=== PATIENT | female | born 1990 | race Caucasian/White ===

== ENCOUNTER 2021-04-22 07:26 | Inpatient (IN) ==
[2021-04-22] MEDS ORDERED: OXYTOCIN 30 UNITS/500 ML BAG IV PRN ×3 (08:43→19:06)
[2021-04-22 09:08] LABS: Hematocrit (blood only) 36.5 % (37-47); Hemoglobin 12.3 g/dL (12.0-16.0); Mean Corpuscular Hemoglobin 29.6 pg (25-34); Mean Corpuscular Hgb Conc 33.7 g/dL (32-36); Mean Corpuscular Volume 87.7 fL (80-100); Mean Platelet Volume 10.5 fL (7.4-10.4); Platelet Count 188 K/uL (130-400); RDW Coefficient of Variation 13.4 % (11.5-14.5); RDW Standard Deviation 42.2 fL (36.4-46.3); Red Blood Count 4.16 M/uL (4.2-5.4); White Blood Count 10.42 K/uL (4.8-10.8)
--- NOTE | 2021-04-22 09:16 | History & Physical Report ---
Date of Service April 22, 2021 Assessment & Plan (1) Encounter for supervision of normal in multigravida, antepartum: Plan: Admit to L&D. [facility]/[place]. Labs. Glucose Q 1h when in active labor. (2) COVID-19 affecting , antepartum: Plan: Discussed results with patient, will move to negative pressure room. Answered questions. Admission and Anticipated Discharge Date Admission Date: April 22, 2021 History of Present Illness Chief Complaint: IOL Primary Care Provider: Amy Kim DO 30yo @ 40 12/05, here for IOL. +FM, no VB, no LOF. No ctx. complicated by: [email or web address]. Allergies Allergy/AdvReac Type Severity Reaction Status Date / Time No Known Allergies Allergy Verified 04/19/21 10:07 Home Medications Medication Instructions Recorded Confirmed Type cetirizine 10 mg tablet (Zyrtec) 10 mg PO DAILY PRN 05/25/20 04/22/21 History vit 123-iron 28 mg-folic 2 cap PO DAILY cap 05/25/20 04/22/21 History acid 800 [id number]-9g 235 mg capsule (One-A-Day Women's 1 DHA-FA) acetone (urine) test (Ketone Urine #50 ea 11/19/20 04/19/21 Rx Test) blood sugar diagnostic (OneTouch #150 ea 11/19/20 04/19/21 Rx Verio test strips) blood-glucose meter (OneTouch #1 ea 11/19/20 04/19/21 Rx Verio Flex meter) lancets 33 gauge (OneTouch Delica #150 ea 11/19/20 04/19/21 Rx Plus Lancet) Patient History Medical History (Updated 04/22/21 @ 09:21 by Kourtney Tavarez DO) Allergies Gestational diabetes Diet- Controlled Surgical History S/P wisdom tooth extraction Family History Father Type 1 diabetes Kidney disease Obstructive sleep apnea Mother Hypertension Cardiac arrhythmia Social History Smoking Status: Never smoker Hx Alcohol Use: No Hx Substance Use: No Preferred Language: Kazakh Communication Ability: Effective 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 Beliefs That Will Affect Care: None marital status: marital status details: Venkat [phone] Current Living Situation: Spouse Current Living Situation Comment: Daughter current occupational status: employed current occupation: teacher Other Information That Helps Us Care for You: No Feels Safe at Home: Yes Safety Concerns: Feels Safe At This Time Dental Care, Regularly: Yes Physical Activity Frequency: Does not Exercise Seatbelt Use: always Sunscreen Use: Yes Assistive Devices: None Review of Systems All systems reviewed & are unremarkable except as noted in HPI & below Physical Exam Physical Exam: SVE 4/50/-3 FHT Cat 1 [place] none Constitutional: WD/WN, vitals as above Respiratory: normal respiratory effort, lungs clear to auscultation no respiratory distress Cardiovascular: Rate/Rhythm: regular rate and regular rhythm Gastrointestinal (Abdomen): Inspection/Auscultation: abdomen normal to inspection Percussion/Palpation: abdomen soft; abdomen nontender Gravid. No s/s chorio or abruption. Skin: no rashes, warm and dry Psychiatric: A+Ox3, euthymic affect Results & Data ([facility]) Vital Signs (Past 12 Hours) Vital Signs Temp Pulse Resp BP 04/22/21 07:47 36.9 C 18 04/22/21 07:42 89 128/85 Coding Level of Care Code None Diagnoses Encounter for supervision of normal in multigravida, antepartum Z34.80 COVID-19 affecting , antepartum O98.519; U07.1
[2021-04-22] MEDS: LACTATED RINGER'S 1,000 ML IV PRN ×2 (10:45→14:37)
[2021-04-22] MEDS ORDERED: ePHEDrine sulfate 50 MG/ML AMP ONE (13:53)
[2021-04-22] MEDS ORDERED: fentaNYL citrate 100 MCG/2 ML VIAL ONE (13:53)
[2021-04-22] MEDS ORDERED: SODIUM CHLORIDE 0.9% INJ 10 ML VIAL ONE (13:53)
[2021-04-22] MEDS ORDERED: BUPIVACAINE 0.25% 30 ML VIAL ONE (13:53)
[2021-04-22] MEDS ORDERED: fentaNYL 2MCG/ML ROPIVACAINE 1.25MG/ML 100 ML BAG EPI ONE (13:54)
--- NOTE | 2021-04-22 13:56 | Anesthesiology Consultation ---
Date of Service April 22, 2021 Assessment & Plan (1) Encounter for pre-operative examination: Chart Review Chart Review: Acceptable Risk for Labor Epidural History Height/Weight Height: 5 ft 2 in Weight: 68.039 kg Allergies Allergy/AdvReac Type Severity Reaction Status Date / Time No Known Allergies Allergy Verified 04/19/21 10:07 Medications Home Medications Medication Instructions Recorded Confirmed Last Taken cetirizine 10 mg tablet (Zyrtec) 10 mg PO DAILY PRN 05/25/20 04/22/21 04/20/21 vit 123-iron 28 mg-folic 2 cap PO DAILY cap 05/25/20 04/22/21 04/21/21 acid 800 [id number]-goqok-5o 235 mg capsule (One-A-Day Women's 1 DHA-FA) acetone (urine) test (Ketone Urine #50 ea 11/19/20 04/19/21 Unknown Test) blood sugar diagnostic (OneTouch #150 ea 11/19/20 04/19/21 Unknown Verio test strips) blood-glucose meter (OneTouch #1 ea 11/19/20 04/19/21 Unknown Verio Flex meter) lancets 33 gauge (OneTouch Delica #150 ea 11/19/20 04/19/21 Unknown Plus Lancet) Active Medications Generic Name Dose Route Start Last Admin Trade Name Freq PRN Reason Stop Dose Admin Lactated Ringer's 1,000 mls @ 125 mls/hr 04/22/21 08:43 04/22/21 10:45 Lr IV 04/24/21 08:42 125 mls/hr .Q8H PRN Administration L&D Protocol Protocol Oxytocin 30 units in 500 mls @ 5 mls/hr 04/22/21 08:43 04/22/21 12:42 Pitocin IV 04/24/21 08:42 0.3 units/hr .Q24H PRN 5 mls/hr Labor Induction/Augmentation Titration Protocol 0.3 UNITS/HR Past Medical History Medical History (Updated 04/22/21 @ 13:56 by Lj López MD) Allergies COVID-19 affecting , antepartum Gestational diabetes Diet- Controlled Past Family History Family History Father Type 1 diabetes Kidney disease Obstructive sleep apnea Mother Hypertension Cardiac arrhythmia Past Surgical History Surgical History S/P wisdom tooth extraction Social History Smoking Status: Never smoker Hx Alcohol Use: No Hx Substance Use: No Physical Exam Vital Signs Last Vital Signs Temp 36.7 C 04/22/21 10:46 Pulse 81 04/22/21 13:41 Resp 18 04/22/21 12:28 BP 123/83 04/22/21 13:41 Lab Results Anesthesia Preop Results Results Anesthesia Widget: SARS-CoV-2, RNA, NAAT POSITIVE (NEGATIVE) A* 04/22/21 Testing Laboratory Results 04/22/21 08:51 04/22/21 04/22/21 10:51 08:42 POC Glucose 78 91
[2021-04-22] MEDS ORDERED: fentaNYL 2MCG/ML ROPIVACAINE 1.25MG/ML 100 ML BAG EPI PRN (15:07)
[2021-04-22] MEDS ORDERED: NALOXONE HCL 1 MG in SODIUM CHLORIDE 0.9% 1000ML 1,000 ML IV PRN (15:07)
[2021-04-22] MEDS ORDERED: NALOXONE HCL 0.4 MG/1 ML VIAL/CARP IV PRN (15:07)
[2021-04-22] MEDS ORDERED: ePHEDrine sulfate 50 MG/ML AMP IV PRN (15:07)
--- NOTE | 2021-04-22 15:47 | Labor Progress Brief Note ---
Date of Service April 22, 2021 Subjective Comfortable w/ epidural Assessment & Plan (1) COVID-19 affecting , antepartum: (2) Gestational diabetes: (3) Encounter for supervision of normal in multigravida, antepartum: Plan: 30 y/o at 40 4/7 wga admitted for eIOL, A1GDM VSS Fetus cat 1 Labor - pit at 5, now s/p arom, continue augmentation GBS neg Epidural in place Admission and Anticipated Discharge Date Admission Date: April 22, 2021 Physical Exam Genitourinary: Manual OB Exam: + cervical dilation 5 cm, + cervical effacement 70%, + station -2 and + amniotic fluid (AROM) clear OB Exam Monitor Tracing: + external FHT monitor used, + external uterine monitor used (q3) and + category I (125/mod/+accel/-decel) Results & Data ([facility]) Vital Signs (Past 12 Hours) Vital Signs Temp Pulse Resp BP Pulse Ox 04/22/21 15:44 76 132/79 04/22/21 15:43 70 100 04/22/21 15:38 79 128/76 100 04/22/21 15:33 85 128/71 100 04/22/21 15:29 68 138/74 04/22/21 15:28 82 100 04/22/21 15:23 65 100 04/22/21 15:22 67 131/77 04/22/21 15:20 74 133/81 04/22/21 15:18 77 18 139/74 100 04/22/21 15:16 74 18 133/72 04/22/21 15:15 20 04/22/21 15:14 77 18 131/70 04/22/21 15:13 79 100 04/22/21 15:12 77 18 136/73 04/22/21 15:10 98.4 F 91 H 20 134/79 04/22/21 15:08 110 H 20 127/86 100 04/22/21 15:06 85 20 129/84 04/22/21 15:04 76 18 133/88 04/22/21 15:03 69 100 04/22/21 15:02 80 137/83 04/22/21 15:00 80 18 132/85 04/22/21 14:58 83 100 04/22/21 14:53 79 100 04/22/21 14:48 80 100 04/22/21 14:43 78 100 04/22/21 14:38 78 100 04/22/21 14:37 84 20 123/75 04/22/21 13:41 81 123/83 04/22/21 12:28 68 18 127/73 04/22/21 11:31 70 18 119/73 04/22/21 10:46 98.1 F 75 18 122/83 04/22/21 07:47 98.4 F 18 04/22/21 07:42 89 128/85 Coding Level of Care Code None Diagnoses COVID-19 affecting , antepartum O98.519; U07.1 Encounter for supervision of normal in multigravida, antepartum Z34.80 Gestational diabetes O24.419
--- NOTE | 2021-04-22 18:58 | Delivery Summary ---
Vaginal Delivery Summary Date of Service April 22, 2021 Vaginal Delivery Summary (Vaginal laceration repair) PREOPERATIVE DIAGNOSIS: 1. Single intrauterine at 40 4/7 wga 2. A1GDM 3. COVID+ POSTOPERATIVE DIAGNOSIS: 1. Single intrauterine at 40 4/7 wga 2. A1GDM 3. COVID+ 4. Delivered PROCEDURE: 1. Normal spontaneous vaginal delivery. SURGEON: Merle Sharp MD ANESTHESIA: Epidural. ESTIMATED BLOOD LOSS: 300 mL FLUIDS: Continuous LR. URINE OUTPUT: None. COMPLICATIONS: None. CONDITION: Stable. INDICATIONS: 30 y/o at 40 4/7 wga presented this morning for planned elective/post-EDC IOL. She was found to be COVID+ on admission and was subsequently moved to appropriate isolation room. Blood glucose was checked and wnl. She was checked and found to be 4cm. She was started on pitocin. She received an epidural and underwent artificial rupture of membranes once she was comfortable. She then progressed to complete and desired to push. FINDINGS: A viable female with Apgars of 8 and 9 at 1 and 5 minutes respectively. SPECIMEN: Cord blood OPERATIVE REPORT: The patient progressed to 10 cm, 100% effaced and +2 station, pushed over intact perineum with anesthesia to deliver a viable female , Apgars as above. Head of delivered in CARLIE position. No nuchal cord was present. Body and shoulders were delivered without difficulty. was delivered to maternal abdomen and nursing staff. Delayed cord clamping was performed for 60 seconds. Cord was clamped and cut. Cord blood was obtained. Placenta delivered spontaneously intact with 3-vessel cord. IV oxytocin and fundal massage were given for excellent hemostasis. Vagina, cervix, perineum, and placenta were inspected. A vaginal laceration was noted and repaired in the usual fashion using 3-0 Vicryl. Sponge and needle counts correct x2. No sponges were left behind. Mother and stable in immediate period. [facility] Vaginal Delivery Charge Vaginal Delivery Codes: 12572 global code for the antepartum, delivery, and post- Delivery Type Details: (Vaginal laceration repair)
[2021-04-22] MEDS ORDERED: BENZOCAINE 20% AER SPR 82.5 GM CAN EXT PRN (19:06)
[2021-04-22] MEDS ORDERED: HYDROCORTISONE ACETATE 25 MG SUPP PR PRN (19:06)
[2021-04-22] MEDS ORDERED: SUPERCREAM 0.870% 15 GM JAR EXT PRN (19:06)
[2021-04-22] MEDS ORDERED: bisacodyL 10 MG SUPP PR PRN (19:06)
[2021-04-22] MEDS ORDERED: DIPHTHERIA/TETANUS/PERTUSSIS 0.5 ML SYR/VIAL IM ONE (19:06)
[2021-04-22] MEDS ORDERED: IBUPROFEN 600 MG TAB PO PRN (19:06)
--- NOTE | 2021-04-22 19:20 | Anesthesia Procedure Note ---
Date of Service April 22, 2021 Anesthesia Post Epidural Note Vital Signs Vital Signs: Temp Pulse Resp BP Pulse Ox 37 C 88 16 130/74 100 04/22/21 19:13 04/22/21 19:08 04/22/21 19:13 04/22/21 19:08 04/22/21 18:23 Notes Mental Status: alert / awake / arousable and participated in evaluation Nausea / Vomiting: adequately controlled Pain: adequately controlled Airway Patency, RR, SpO2: stable & adequate BP & HR: stable & adequate Hydration State: stable & adequate Neuraxial Anesthesia: was administered and sensory block is resolving Anesthetic Complications: no major complications apparent Epidural: Removed without complications and With tip intact
[2021-04-22] MEDS: DOCUSATE SODIUM 100 MG CAP PO SCH (21:48)
[2021-04-22] MEDS: ACETAMINOPHEN 325 MG TAB PO PRN (21:48)
[2021-04-23 06:24] LABS: Hemoglobin 11.5 g/dL (12.0-16.0); Mean Corpuscular Hemoglobin 29.6 pg (25-34); Mean Corpuscular Hgb Conc 33.8 g/dL (32-36); Mean Corpuscular Volume 87.6 fL (80-100); Mean Platelet Volume 10.3 fL (7.4-10.4); Platelet Count 183 K/uL (130-400); RDW Coefficient of Variation 13.4 % (11.5-14.5); RDW Standard Deviation 42.2 fL (36.4-46.3); Red Blood Count 3.88 M/uL (4.2-5.4); White Blood Count 14.11 K/uL (4.8-10.8)
[2021-04-23] MEDS: DOCUSATE SODIUM 100 MG CAP PO SCH (07:42)
[2021-04-23] MEDS: ACETAMINOPHEN 325 MG TAB PO PRN (07:42)
--- NOTE | 2021-04-23 07:56 | Obstetrical Progress Note ---
Date of Service April 23, 2021 Assessment & Plan (1) COVID-19 affecting , antepartum: (2) state: 30 yo PP1 from complicated by + covid result on admission, doing well -Meeting all pp milestones -O+/rubella immune/ -Desires d/c home today, stable to do so. F/u 6 weeks for appt Subjective Ambulation: ambulating normally Voiding: no voiding problems Passing Gas:: Yes Diet Tolerance:: regular diet Lochia:: Small Feeding Type:: breast feeding Pain well managed with medication Review of Systems Denies fevers, chills, n/v, ADHIKARI, CP, SOB Physical Exam Constitutional WD/WN, vitals as above no acute distress Respiratory normal respiratory effort; no respiratory distress and no labored breathing Gastrointestinal (Abdomen) Percussion/Palpation: abdomen soft; abdomen nontender fundus firm at umbilicus and NT Musculoskeletal BLE symmetric, nonerythematous, nontender Results & Data ([facility]) Vital Signs (Past 12 Hours) Vital Signs Temp Pulse Pulse Resp BP BP Pulse Ox 04/23/21 07:16 98.1 F 76 18 128/84 04/23/21 03:22 97.7 F 80 16 137/87 98 04/22/21 22:47 98.2 F 72 16 117/68 98 04/22/21 21:07 98.2 F 18 123/73 96 04/22/21 20:23 96 H 119/66 04/22/21 20:08 100 H 129/70 04/22/21 19:57 86 138/73
[2021-04-23] MEDS ORDERED: FERROUS SULFATE 325 MG TAB PO SCH (08:00)
[2021-04-23] MEDS ORDERED: PRENATAL VITAMIN 1 TAB PO SCH (08:00)
[2021-04-23] MEDS ORDERED: bisacodyL 5 MG TABEC PO SCH (20:00)
--- NOTE | 2021-05-02 14:44 | Coding Query ---
CODING QUERY To promote full compliance with coding requirements relating to patient care, provider participation is requested in all cases of clinical resource director uncertainty. Please assist us with the question(s) below: Coding Question(s): Please clarify the degree of laceration. Physician's Response(s): It was an internal vaginal laceration so no perineal degree is applicable Thank you Sonja Umanzor Principal Diagnosis: "that condition established after study, to be chiefly responsible for occasioning the admission of the patient to the hospital for care." Co-Existing Principal Diagnosis: "when two or more diagnoses equally meet the criteria for principal diagnosis as determined by the circumstances of admission, diagnostic work up, and/or therapy provided, and the Alphabetic Index, Tabular List, or another coding guideline does not provide sequencing direction, any one of the diagnoses may be sequenced first." "When the physician has documented what appears to be a current diagnosis in the body of the record, but has not included the diagnosis in the final diagnostic statement, the physician should be asked whether the diagnosis should be added." (Source Coding [facility] 2 QTR90. p3-4) OLYA
== END 2021-04-23 18:50 | disposition home or self-care (01) | DRG 805 ==
LOC: 4S1 07:26 → 4W 10:26 → 3W 21:33